=== PATIENT | female | born 1965 | race Caucasian/White ===

== ENCOUNTER → 2021-02-27 | Outpatient (CLI) | payer OTHER | LOC: RAD 11:37 | DX: M54.2 Cervicalgia (principal); M54.6 Pain in thoracic spine; M54.5 Low back pain; M47.816 Spondylosis without myelopathy or radiculopathy, lumbar region; M47.812 Spondylosis without myelopathy or radiculopathy, cervical region | CPT/HCPCS: 72050; 72070; 72110 ==